=== PATIENT | male | born 1950 | race Caucasian/White ===

== ENCOUNTER 2019-05-03 13:52 | Emergency (ER) | payer MEDICARE, OTHER ==
[~2019-05-03] VITALS: Ht 172.7 cm; Wt 77.1 kg
[2019-05-03] MEDS ORDERED: CLOP75 PO ×2 (14:04→16:18)
[2019-05-03] MEDS ORDERED: Carbidopa-Levo1 EACH PO ×2 (14:05→16:18)
[2019-05-03] MEDS ORDERED: FAMO20 PO (14:05)
[2019-05-03] MEDS ORDERED: Lopressor 25 mg25 MG PO ×2 (14:05→16:18)
[2019-05-03] MEDS ORDERED: POTCHL20ER PO (14:05)
[2019-05-03] MEDS ORDERED: ASPI81CH PO (14:06)
[2019-05-03] MEDS ORDERED: ATOR80 PO ×2 (14:06→16:18)
[2019-05-03 14:47] LABS: BASOPHILS ABSOLUTE AUTO 0.07 K/mm3 (0.00-0.23); BASOPHILS PERCENT AUTO 1 % (0-2); EOSINOPHILS ABSOLUTE AUTO 0.27 K/mm3 (0.00-0.68); EOSINOPHILS PERCENT AUTO 4 % (0-6); Hematocrit 44.6 % (37.0-53.0); Hemoglobin 14.8 g/dL (13.5-17.5); IMMATURE GRAN ABSOLUTE AUTO 0.01 K/mm3 (0.00-0.10); IMMATURE GRAN PERCENT AUTO 0 % (0-1); LYMPHOCYTES PERCENT AUTO 13 % (21-46); MONOCYTES ABSOLUTE AUTO 0.49 K/mm3 (0.16-1.47); MONOCYTES PERCENT AUTO 8 % (4-13); Mean Corpuscular HGB 29.1 pg (26.0-34.0); Mean Corpuscular HGB Conc 33.2 g/dL (31.5-36.5); Mean Corpuscular Volume 88 fL (80-100); Mean Platelet Volume 8.9 fL (9.1-12.4); NEUTROPHILS ABSOLUTE AUTO 4.58 K/mm3 (1.96-9.15); NEUTROPHILS PERCENT AUTO 74 % (41-73); Platelet Count 208 K/mm3 (150-400); RDW Coefficient Variation 13.1 % (11.7-14.2); RDW Standard Deviation 42.1 fL (35.1-46.3); Red Blood Cell Count 5.08 M/mm3 (4.30-5.90); White Blood Cell Count 6.22 K/mm3 (4.00-11.30)
[2019-05-03 15:19] LABS: Alanine Aminotransfer (ALT/SGP 22 U/L (12-78); Albumin/Globulin Ratio 1.2 (0.8-1.8); Alk Phos 87 U/L (50-136); Anion Gap 7 mmol/L (6-16); Aspartate Aminotrans (AST/SGOT 17 U/L (12-37); Bilirubin, Total 0.7 mg/dL (0.1-1.0); Blood Urea Nitrogen 14 mg/dL (8-24); Bun/Creatinine Ratio 18.3 (12.0-20.0); CO2, Blood 24 mmol/L (21-32); Chloride, Blood 107 mmol/L (98-108); Creatinine, Blood 0.77 mg/dL (0.60-1.20); Globulin, Blood 3.2 g/dL (2.2-4.0); Glomerular Filtration Rate >60 (60-); Glucose, Blood 84 mg/dL (70-99); Potassium, Blood 3.9 mmol/L (3.5-5.5); Sodium, Blood 138 mmol/L (136-145); Total Protein, Blood 7.2 g/dL (6.4-8.2); Troponin I <0.015 ng/mL (0.000-0.040)
[2019-05-03] MEDS ORDERED: Pepcid20 MG PO (16:18)
[2019-05-03] MEDS ORDERED: K-Dur 20 meq T20 MEQ PO (16:18)
== END 2019-05-03 16:54 | disposition home or self-care (01) ==
LOC: ER 13:52
PROVIDERS: Internal Medicine
DX: R07.89 Other chest pain (principal); E78.5 Hyperlipidemia, unspecified; I10 Essential (primary) hypertension; G20 Parkinson's disease; I25.10 Atherosclerotic heart disease of native coronary artery without angina pectoris; Z79.82 Long term (current) use of aspirin; Z79.899 Other long term (current) drug therapy
CPT/HCPCS: 71046; 80053; 84484; 85025; 93005; 93010; 99285-25

== ENCOUNTER 2019-07-10 19:13 | Emergency (ER) | payer MEDICARE, OTHER ==
[~2019-07-10] VITALS: Ht 172.7 cm; Wt 74.8 kg
[~2019-07-10 19:13] MED LIST: ASPI81CH PO; ATOR80 PO; CLOP75 PO; Carbidopa-Levo1 EACH PO; FAMO20 PO; K-Dur 20 meq T20 MEQ PO; Lopressor 25 mg25 MG PO; POTCHL20ER PO; Pepcid20 MG PO
== END 2019-07-10 21:19 | disposition home or self-care (01) ==
LOC: ER 19:13
DX: M25.561 Pain in right knee (principal); Z79.899 Other long term (current) drug therapy; Z79.82 Long term (current) use of aspirin; G20 Parkinson's disease
CPT/HCPCS: 73562-RT; 99283-25

== ENCOUNTER 2021-07-31 19:43 | Emergency (ER) | payer OTHER ==
[~2021-07-31] VITALS: Ht 172.7 cm; Wt 78.5 kg
[2021-07-31 21:17] LABS: Anion Gap 10 mmol/L (6-16); Blood Urea Nitrogen 18 mg/dL (8-24); Bun/Creatinine Ratio 18.8 (12.0-20.0); CO2, Blood 21 mmol/L (21-32); Chloride, Blood 103 mmol/L (98-108); Creatinine, Blood 0.96 mg/dL (0.60-1.20); Glomerular Filtration Rate >60 (60-); Glucose, Blood 134 mg/dL (70-99); Potassium, Blood 4.1 mmol/L (3.5-5.5); Sodium, Blood 134 mmol/L (136-145)
[2021-07-31 21:21] LABS: BASOPHILS ABSOLUTE AUTO 0.05 K/mm3 (0.00-0.23); BASOPHILS PERCENT AUTO 0 % (0-2); EOSINOPHILS ABSOLUTE AUTO 0.01 K/mm3 (0.00-0.68); EOSINOPHILS PERCENT AUTO 0 % (0-6); Hematocrit 41.9 % (37.0-53.0); IMMATURE GRAN ABSOLUTE AUTO 0.12 K/mm3 (0.00-0.10); IMMATURE GRAN PERCENT AUTO 1 % (0-1); LYMPHOCYTES ABSOLUTE AUTO 0.39 K/mm3 (0.84-5.20); LYMPHOCYTES PERCENT AUTO 3 % (21-46); MONOCYTES ABSOLUTE AUTO 1.28 K/mm3 (0.16-1.47); MONOCYTES PERCENT AUTO 9 % (4-13); Mean Corpuscular HGB 26.8 pg (26.0-34.0); Mean Corpuscular HGB Conc 33.4 g/dL (31.5-36.5); Mean Corpuscular Volume 80 fL (80-100); Mean Platelet Volume 9.8 fL (9.1-12.4); NEUTROPHILS ABSOLUTE AUTO 12.99 K/mm3 (1.96-9.15); NEUTROPHILS PERCENT AUTO 88 % (41-73); Platelet Count 214 K/mm3 (150-400); RDW Coefficient Variation 14.5 % (11.7-14.2); RDW Standard Deviation 41.9 fL (35.1-46.3); Red Blood Cell Count 5.22 M/mm3 (4.30-5.90); White Blood Cell Count 14.84 K/mm3 (4.00-11.30)
[2021-07-31] MEDS ORDERED: ATOR80 PO (22:13)
[2021-07-31] MEDS ORDERED: Aspir 8181 MG PO (22:13)
[2021-07-31] MEDS ORDERED: CARBIDOPA-LEVO1 EA21 PO (22:14)
[2021-07-31] MEDS ORDERED: SIMBRINZA 1%-0.28 ML LEFTEYE (22:14)
[2021-07-31] MEDS ORDERED: METO25 PO (22:15)
[2021-07-31] MEDS ORDERED: FAMO20 PO (22:15)
[2021-07-31] MEDS ORDERED: CLOP75 PO (22:15)
[2021-07-31] MEDS ORDERED: QUET100 PO (22:16)
== END 2021-07-31 23:40 | disposition home or self-care (01) ==
LOC: ER 19:43
PROVIDERS: Student in an Organized Health Care Education/Training Program
DX: L03.031 Cellulitis of right toe (principal); D72.829 Elevated white blood cell count, unspecified; R53.1 Weakness; G20 Parkinson's disease; Z79.02 Long term (current) use of antithrombotics/antiplatelets; Z79.82 Long term (current) use of aspirin; Z95.1 Presence of aortocoronary bypass graft; Z95.5 Presence of coronary angioplasty implant and graft; W06.XXXA Fall from bed, initial encounter
CPT/HCPCS: 36415; 70450; 72125; 73562-RT; 73630; 80048; 83605; 85025; 85651; 86140; 93005; 93010; 96365; 96366; 96375; 99284-25; J0696; J3370; J7050

== ENCOUNTER 2021-08-06 08:08 | Emergency (ER) | payer OTHER ==
[~2021-08-06] VITALS: Ht 172.7 cm; Wt 78.5 kg
[~2021-08-06 08:08] MED LIST changes: +Aspir 8181 MG PO; +CARBIDOPA-LEVO1 EA21 PO; +CEFP200 PO; +METO25 PO; +QUET100 PO; +SIMBRINZA 1%-0.28 ML LEFTEYE
[2021-08-06 08:56] LABS: BASOPHILS ABSOLUTE AUTO 0.05 K/mm3 (0.00-0.23); BASOPHILS PERCENT AUTO 1 % (0-2); EOSINOPHILS ABSOLUTE AUTO 0.15 K/mm3 (0.00-0.68); EOSINOPHILS PERCENT AUTO 3 % (0-6); Hematocrit 40.6 % (37.0-53.0); Hemoglobin 13.3 g/dL (13.5-17.5); IMMATURE GRAN PERCENT AUTO 2 % (0-1); LYMPHOCYTES ABSOLUTE AUTO 0.88 K/mm3 (0.84-5.20); LYMPHOCYTES PERCENT AUTO 14 % (21-46); MONOCYTES ABSOLUTE AUTO 0.48 K/mm3 (0.16-1.47); MONOCYTES PERCENT AUTO 8 % (4-13); Mean Corpuscular HGB 26.3 pg (26.0-34.0); Mean Corpuscular HGB Conc 32.8 g/dL (31.5-36.5); Mean Corpuscular Volume 80 fL (80-100); Mean Platelet Volume 9.4 fL (9.1-12.4); NEUTROPHILS ABSOLUTE AUTO 4.44 K/mm3 (1.96-9.15); NEUTROPHILS PERCENT AUTO 73 % (41-73); Platelet Count 333 K/mm3 (150-400); RDW Coefficient Variation 14.5 % (11.7-14.2); RDW Standard Deviation 42.2 fL (35.1-46.3); Red Blood Cell Count 5.05 M/mm3 (4.30-5.90)
[2021-08-06 09:40] LABS: Alanine Aminotransfer (ALT/SGP 41 U/L (12-78); Albumin, Blood 2.6 g/dL (3.4-5.0); Albumin/Globulin Ratio 0.6 (0.8-1.8); Alk Phos 91 U/L (50-136); Anion Gap 7 mmol/L (6-16); Aspartate Aminotrans (AST/SGOT 32 U/L (12-37); Bilirubin, Total 0.4 mg/dL (0.1-1.0); Blood Urea Nitrogen 15 mg/dL (8-24); Bun/Creatinine Ratio 20.5 (12.0-20.0); CO2, Blood 26 mmol/L (21-32); Calcium, Blood 8.7 mg/dL (8.5-10.1); Chloride, Blood 106 mmol/L (98-108); Creatinine, Blood 0.73 mg/dL (0.60-1.20); Globulin, Blood 4.2 g/dL (2.2-4.0); Glomerular Filtration Rate >60 (60-); Glucose, Blood 102 mg/dL (70-99); Sodium, Blood 139 mmol/L (136-145); Total Protein, Blood 6.8 g/dL (6.4-8.2)
[2021-08-06 14:27] LABS: SARS-Cov-2 (COVID-19) PCR, MMC NEGATIVE (NEGATIVE)
== END 2021-08-06 17:05 ==
LOC: ER 08:08
PROVIDERS: Emergency Medicine
DX: L03.031 Cellulitis of right toe (principal); G20 Parkinson's disease; Z20.822 Contact with and (suspected) exposure to COVID-19; I25.10 Atherosclerotic heart disease of native coronary artery without angina pectoris; Z79.82 Long term (current) use of aspirin; Z79.899 Other long term (current) drug therapy; W18.30XA Fall on same level, unspecified, initial encounter
CPT/HCPCS: 36415; 73630; 80053; 85025; 97162; 97530; 99285-25; A9270; U0004

== ENCOUNTER → 2023-02-24 | Outpatient (CLI) | payer OTHER ==
[2023-02-25 11:32] LABS: Appearance, Urine Clear (Clear); Bilirubin, Urine Neg (Neg); Blood, Urine Neg (Neg); Color, Urine Yellow (P-Yellow); Glucose Qualitative, Urine Neg (Neg); Ketones, Urine Neg (Neg); Leukocyte Esterase, Urine Neg (Neg); Nitrite, Urine Neg (Neg); Protein, Urine Neg (Neg); Specific Gravity, Urine 1.015 (1.003-1.022); Urobilinogen, Urine NORM (Normal)
== END | disposition home or self-care (01) ==
LOC: LAB SHORT 14:45
PROVIDERS: Family Medicine
DX: N39.0 Urinary tract infection, site not specified (principal)
CPT/HCPCS: 81003; 87086

== ENCOUNTER 2023-07-03 15:08 | Emergency (ER) | payer OTHER ==
[~2023-07-03] VITALS: Ht 172.7 cm; Wt 68.0 kg
[~2023-07-03 15:08] MED LIST changes: +MIRALAX1714 PO; +OMEP20ER PO; +SENN187 PO
[2023-07-03] MEDS ORDERED: ATOR40TA PO (15:57)
[2023-07-03 15:58] LABS: BASOPHILS ABSOLUTE AUTO 0.06 K/mm3 (0.00-0.23); BASOPHILS PERCENT AUTO 1 % (0-2); EOSINOPHILS ABSOLUTE AUTO 0.13 K/mm3 (0.00-0.68); EOSINOPHILS PERCENT AUTO 3 % (0-6); Hematocrit 46.5 % (37.0-53.0); Hemoglobin 15.6 g/dL (13.5-17.5); IMMATURE GRAN ABSOLUTE AUTO 0.02 K/mm3 (0.00-0.10); IMMATURE GRAN PERCENT AUTO 0 % (0-1); LYMPHOCYTES ABSOLUTE AUTO 0.72 K/mm3 (0.84-5.20); LYMPHOCYTES PERCENT AUTO 14 % (21-46); MONOCYTES ABSOLUTE AUTO 0.35 K/mm3 (0.16-1.47); MONOCYTES PERCENT AUTO 7 % (4-13); Mean Corpuscular HGB 29.7 pg (26.0-34.0); Mean Corpuscular HGB Conc 33.5 g/dL (31.5-36.5); Mean Corpuscular Volume 89 fL (80-100); NEUTROPHILS ABSOLUTE AUTO 3.86 K/mm3 (1.96-9.15); NEUTROPHILS PERCENT AUTO 75 % (41-73); Platelet Count 186 K/mm3 (150-400); RDW Coefficient Variation 13.2 % (11.7-14.2); Red Blood Cell Count 5.25 M/mm3 (4.30-5.90); White Blood Cell Count 5.14 K/mm3 (4.00-11.30)
[2023-07-03 16:13] LABS: Magnesium, Blood 2.3 mg/dL (1.6-2.4)
[2023-07-03 16:16] LABS: Albumin, Blood 3.8 g/dL (3.4-5.0); Albumin/Globulin Ratio 1.2 (0.8-1.8); Bilirubin, Total 0.7 mg/dL (0.1-1.0); Bun/Creatinine Ratio 32.2 (12.0-20.0); Creatinine, Blood 0.68 mg/dL (0.60-1.20); Globulin, Blood 3.2 g/dL (2.2-4.0); Phosphorus, Blood 2.9 mg/dL (2.5-4.9); Potassium, Blood 4.3 mmol/L (3.5-5.5); Thyroid Stimulating Hormone 1.23 uIU/mL (0.360-4.800)
[2023-07-03 16:28] LABS: International Normalized Ratio 1.04; Prothrombin Time Results 10.9 Sec (9.7-11.5)
[2023-07-03 16:31] LABS: Source, Urine Clean Catch
[2023-07-03 16:36] LABS: Appearance, Urine Clear (Clear); Bilirubin, Urine Neg (Neg); Blood, Urine Neg (Neg); Color, Urine Yellow (P-Yellow); Glucose Qualitative, Urine Neg (Neg); Ketones, Urine Neg (Neg); Leukocyte Esterase, Urine Neg (Neg); Nitrite, Urine Neg (Neg); Protein, Urine Neg (Neg); Urobilinogen, Urine NORM (Normal)
[2023-07-03 17:30] VITALS: BP 129/99
== END 2023-07-03 17:31 ==
LOC: ER 15:08
PROVIDERS: Emergency Medicine
DX: E86.0 Dehydration (principal); Z79.899 Other long term (current) drug therapy; Z79.02 Long term (current) use of antithrombotics/antiplatelets; Z95.1 Presence of aortocoronary bypass graft; Z95.5 Presence of coronary angioplasty implant and graft
CPT/HCPCS: 70450; 80053; 81003; 83735; 84100; 84443; 84484; 85025; 85610; 85730; 93005; 93010; 96360; 99284-25; A9270; J7030

== ENCOUNTER → 2023-07-07 | Outpatient (CLI) | payer OTHER ==
[~2023-07-07] MED LIST changes: +ATOR40TA PO
[2023-07-08 10:01] LABS: Source, Urine Clean Catch
[2023-07-08 10:38] LABS: Appearance, Urine Clear (Clear); Bilirubin, Urine Neg (Neg); Blood, Urine Neg (Neg); Color, Urine Yellow (P-Yellow); Glucose Qualitative, Urine Neg (Neg); Ketones, Urine Neg (Neg); Leukocyte Esterase, Urine Neg (Neg); Nitrite, Urine Neg (Neg); Protein, Urine Neg (Neg); Specific Gravity, Urine 1.015 (1.003-1.022); Urobilinogen, Urine NORM (Normal)
== END ==
LOC: LAB SHORT 10:20 → LAB 10:20
PROVIDERS: Family Medicine
DX: N39.0 Urinary tract infection, site not specified (principal)
CPT/HCPCS: 81003; 87077; 87086; 87186

== ENCOUNTER 2023-11-03 17:16 | Observation (INO) | payer OTHER ==
[~2023-11-03] VITALS: Ht 175.3 cm; Wt 69.7 kg
[2023-11-03] MEDS ORDERED: Seroquel Xr50 MG PO (17:41)
[2023-11-03 17:49] LABS: BASOPHILS ABSOLUTE AUTO 0.05 K/mm3 (0.00-0.23); BASOPHILS PERCENT AUTO 1 % (0-2); EOSINOPHILS ABSOLUTE AUTO 0.13 K/mm3 (0.00-0.68); EOSINOPHILS PERCENT AUTO 1 % (0-6); Hematocrit 50.5 % (37.0-53.0); Hemoglobin 17.2 g/dL (13.5-17.5); IMMATURE GRAN ABSOLUTE AUTO 0.02 K/mm3 (0.00-0.10); IMMATURE GRAN PERCENT AUTO 0 % (0-1); LYMPHOCYTES ABSOLUTE AUTO 0.42 K/mm3 (0.84-5.20); LYMPHOCYTES PERCENT AUTO 4 % (21-46); MONOCYTES ABSOLUTE AUTO 0.64 K/mm3 (0.16-1.47); MONOCYTES PERCENT AUTO 7 % (4-13); Mean Corpuscular HGB 30.2 pg (26.0-34.0); Mean Corpuscular HGB Conc 34.1 g/dL (31.5-36.5); Mean Corpuscular Volume 89 fL (80-100); NEUTROPHILS ABSOLUTE AUTO 8.44 K/mm3 (1.96-9.15); NEUTROPHILS PERCENT AUTO 87 % (41-73); Platelet Count 191 K/mm3 (150-400); RDW Coefficient Variation 13.3 % (11.7-14.2)
[2023-11-03 18:12] LABS: Albumin, Blood 4.1 g/dL (3.4-5.0); Albumin/Globulin Ratio 1.1 (0.8-1.8); Bilirubin, Total 1.3 mg/dL (0.1-1.0); Bun/Creatinine Ratio 31.5 (12.0-20.0); Calcium, Blood 9.3 mg/dL (8.5-10.1); Creatinine, Blood 0.76 mg/dL (0.60-1.20); Globulin, Blood 3.6 g/dL (2.2-4.0); Magnesium, Blood 2.3 mg/dL (1.6-2.4); Potassium, Blood 4.7 mmol/L (3.5-5.5); Total Protein, Blood 7.7 g/dL (6.4-8.2)
[2023-11-03 18:23] LABS: Influenza A, PCR NEGATIVE (NEGATIVE); Influenza B, PCR NEGATIVE (NEGATIVE); Resp Syncytial Virus, PCR NEGATIVE (NEGATIVE); SARS-Cov-2 (COVID-19) PCR, MMC NEGATIVE (NEGATIVE)
[2023-11-03 22:28] VITALS: BP 122/109
[2023-11-03 22:30] VITALS: BP 123/89
[2023-11-03 22:44] LABS: Source, Urine Clean Catch
[2023-11-03 22:50] LABS: Bilirubin, Urine Neg (Neg); Blood, Urine Neg (Neg); Glucose Qualitative, Urine Neg (Neg); Ketones, Urine 1+ (Neg); Leukocyte Esterase, Urine Neg (Neg); Nitrite, Urine Neg (Neg); Protein, Urine Neg (Neg); Urobilinogen, Urine NORM (Normal)
[2023-11-03 22:58] LABS: Appearance, Urine Clear (Clear); Color, Urine Yellow (P-Yellow)
[2023-11-03 23:01] LABS: U Amphetamine Screen Not Detected; U Barbituate Screen Not Detected; U Benzodiazapine Screen DETECTED; U Buprenorphine Screen Not Detected; U Cannabinoids Screen Not Detected; U Cocaine Screen Not Detected; U Methadone Screen Not Detected; U Methamphetamine Screen Not Detected; U Opiates Screen Not Detected; U Oxycodone Screen Not Detected; U Phencyclidine Screen Not Detected
[2023-11-04 02:09] VITALS: BP 110/65
[2023-11-04 03:39] LABS: Hematocrit 45.2 % (37.0-53.0); Hemoglobin 15.1 g/dL (13.5-17.5); Mean Corpuscular HGB 29.8 pg (26.0-34.0); Mean Corpuscular HGB Conc 33.4 g/dL (31.5-36.5); Mean Corpuscular Volume 89 fL (80-100); RDW Coefficient Variation 13.5 % (11.7-14.2); RDW Standard Deviation 43.8 fL (35.1-46.3); Red Blood Cell Count 5.07 M/mm3 (4.30-5.90); White Blood Cell Count 6.65 K/mm3 (4.00-11.30)
[2023-11-04 03:44] LABS: Mean Platelet Volume 9.1 fL (9.1-12.4)
[2023-11-04 03:47] LABS: BAND PERCENT MAN 3 % (0-8); BASOPHILS PERCENT MAN 0 % (0-2); EOSINOPHILS ABSOLUTE MAN 0.13 K/mm3 (0.00-0.68); EOSINOPHILS PERCENT MAN 2 % (0-6); LYMPHOCYTES ABSOLUTE MAN 0.13 K/mm3 (0.84-5.20); LYMPHOCYTES PERCENT MAN 2 % (21-46); MONOCYTES ABSOLUTE MAN 0.06 K/mm3 (0.16-1.47); MONOCYTES PERCENT MAN 1 % (4-13); NEUTROPHILS ABSOLUTE MAN 6.31 K/mm3 (1.96-9.15); SEG NEUTROPHILS PERCENT MAN 92 % (41-73); TOTAL CELLS COUNTED 100
[2023-11-04 03:48] LABS: Platelet Count 170 K/mm3 (150-400)
[2023-11-04 04:04] LABS: Albumin, Blood 3.3 g/dL (3.4-5.0); Bun/Creatinine Ratio 34.6 (12.0-20.0); Calcium, Blood 8.4 mg/dL (8.5-10.1); Creatinine, Blood 0.67 mg/dL (0.60-1.20); Globulin, Blood 3.2 g/dL (2.2-4.0); Potassium, Blood 4.2 mmol/L (3.5-5.5); Total Protein, Blood 6.5 g/dL (6.4-8.2)
--- NOTE | 2023-11-04 07:11 | NUR ---
SHIFT SUMMARY: PATIENT ARRIVES TO ROOM AT 2215 FROM ER FOR DX'S OF SYNCOPE. PATIENT A/OX3, VERY ANXIOUS, PLEASANT AND COOPERATIVE c CARE. VISIBLE TREMORS TO BUE'S, HX OF PARKINSON. PATIENT DENIES CP/PRESSURE, N/V, AND DIZZINESS. PATIENT RECEIVED OT DOSE OF ATIVAN AND OT DOSE OF KLONOPIN FOR ANXIETY, c MODERATE EFFECT. PATIENT HAD HICCUPS, NOTIFIED DR. BARNARD AND PLACED ORDER FOR OT DOSE LEVSIN, MEDICATED PER ORDER. PATIENT DID NOT HAD ANY SLEEP LAST NIGHT UNTIL AROUND 0615. PATIENT ON TELE, NSR HR IN THE 80'S BPM. PATIENT O2 WAS IN THE MID 80'S WHEN ARRIVED TO ROOM, PLACED ON 2L OF O2 VIA NC AND HAS BEEN SATING IN THE LOW 90'S THIS SHIFT. PATIENT IS CONTINENCE OF BLADDER, USES URINAL c ASSISTANCE. PIV TO RAC INFUSING NS AT 75 MLS/HR. BED ALARM ON FOR SAFETY. CALL LIGHT IN REACH.
[2023-11-04 09:08] VITALS: BP 120/75
--- NOTE | 2023-11-04 10:55 | NUR ---
NUCLEAR MED CALL RESTING 1330 - INJECTION 1430 - SCAN NO CAFFEINE AFTER 1900, NPO AFTER MIDNIGHT (WATER OK). STRESS TEST 11/05/23 - [id number] THEN SCAN AFTER.
[2023-11-04 14:04] VITALS: BP 111/72
--- NOTE | 2023-11-04 17:50 | NUR ---
SHIFT SUMMARY A&OX4, COOPERATIVE WITH CARE. [place] AND SOFT SPOKEN. LETHARGIC AT THE BEGINNING OF THE SHIFT R/T FINALLY FALLING ASLEEP AT 0600 THIS MORNING. PATIENT IS ABLE TO MAKE NEEDS KNOWN. NOTED TO HAVE INCREASED PARKINSON'S TEMORS AT TIMES. PATIENT EXPERIENCED HICCUPS FOR A COUPLE OF HOURS AND WAS GIVEN THORAZINE 10MG PO WHICH HELPED. RESTING PORTION OF THE STRESS TEST COMPLETED TODAY. SECOND PART OF STRESS TEST PLANNED FOR TOMORROW. PATIENT IS CURRENTLY SITTING UP IN BED EATING DINNER. CALL LIGHT IS WITHIN REACH.
[2023-11-04 20:29] VITALS: BP 107/60
--- NOTE | 2023-11-05 04:23 | NUR ---
SHIFT SUMMARY PATIET HAD NO ACUTE CHANGES. AXOX 3, PARKINSON TREMORS, AND BED REST. ON 2L O2 NC. TELE MONITOR NSR 68. CONDOM CATH IN PLACE. VSS/AFEBRILE. DENIES CHEST PAIN, SOB, AND N/V. SECOND PART OF STRESS TEST TODAY. SLEPT ON/OFF T/O SHIFT. CALL LIGHT IN REACH. BED IN LOWEST POSITION. WILL CONTINUE TO MONITOR UNTIL DAY SHIFT NURSE ASSUMES CARE.
[2023-11-05 04:35] VITALS: BP 104/76
[2023-11-05 07:30] VITALS: BP 102/70
[2023-11-05 16:18] VITALS: BP 127/81
--- NOTE | 2023-11-05 18:39 | NUR ---
SHIFT SUMMARY- PT IS A/O, PLESANT AND COOPERATIVE. HE IS EATING AND DRINKING WELL. RECIEVED A BED BATH THIS SHIFT. HE WENT FOR THE SECOND PART OF A STRESS TEST THIS SHIFT. POSSIBLE DX TOMORROW.
[2023-11-05 20:17] VITALS: BP 113/81
[2023-11-06 02:31] VITALS: BP 97/65
--- NOTE | 2023-11-06 06:46 | NUR ---
END OF SHIFT SUMMARY PT A&O x3-4, VSS, AFEBRILE. PT ON RA, RESP RATE EVEN AND UNLABORED. PT ON TELEMETRY, SINUS RHYTHM AT 66BPM. NO C/O OF CHEST PAIN, NO SOB. PT REQUESTED PAIN MEDICATION FOR GENERALIZED PAIN. PRN APAP GIVEN WITH GOOD RESULTS. NO EVENTS OVERNIGHT. PT SLEPT WELL. PT ABLE TO MAKE NEEDS KNOWN, CALL LIGHT WITHIN REACH, WCTM.
[2023-11-06 07:50] VITALS: BP 138/85
[2023-11-06 15:15] VITALS: BP 139/85
--- NOTE | 2023-11-06 19:07 | NUR ---
SHIFT SUMMARY: PT A&O X3-4. PLEASANT AND COOPERATIVE WITH CARE. NO ACUTE CHANGES WITH PT THIS SHIFT. PLAN TO D/C YESTERDAY BUT COULD NOT D/T RIDE ISSUES. PLAN TO D/C TODAY BUT UNABLE D/T PT STAYING 72 HOURS AND RE-EVAL NEEDING TO BE COMPLETED. TELE REMOVED PER DR. ROBINS REQUEST. NEW CONDOM CATH APPLIED DRAINING YELLOW URINE TO GRAVITY. CALL LIGHT IN REACH. BED IN LOWEST POSITION.
[2023-11-06 20:06] VITALS: BP 126/68
--- NOTE | 2023-11-07 03:44 | NUR ---
PT A&O x4, VSS, AFEBRILE, PT ON RA. PT CALM AND COOPERATIVE WITH CARE PROVIDED. PT SLEPT FOR THE MAJORITY OF THE NIGHT. PT UP TO BSC TO HAVE A BM. PT INCREASINGLY WEAK, TOOK 1-2P ASSIST FOR SAFETY. CONDOM CATH IN PLACE OVERNIGHT. NO C/O PAIN OR DISCOMFORT. PT ABLE TO MAKE NEEDS KNOWN. PT CALLS APPROPRIATELY FOR ASSISTANCE. FLUIDS ENCOURAGED. PRN THORAZINE GIVEN PER PT'S REQUEST TO HELP WITH ANXIETY. NO DIFFICULTIES WITH BREATHING NOTED. POSSIBLE DISCHARGE TODAY BACK TO CARE FACILITY. CALL LIGHT WITHIN REACH, WCTM.
[2023-11-07 05:36] VITALS: BP 117/74
[2023-11-07 07:50] VITALS: BP 126/77
[2023-11-07 16:18] VITALS: BP 132/94
--- NOTE | 2023-11-07 16:41 | NUR ---
DISCHARGE NOTE PT DISCHARGED HOME AT APPROX 16:40. PT PROVIDED W/ VERBAL AND WRITTEN INSRUCTIONS AND REPORTED UNDERSTANDING. PT A&OX4, VSS, AMB W/ ASSIST, TOLERATING PO, VOIDING, AND DENIED PAIN. BELONGINGS WERE RETURNED AND PT ESCOURTED OUT VIA W/C BY [facility]
== END 2023-11-07 16:45 ==
LOC: ER 17:16 → MEDS 17:17 → ERHOLD 17:17 → MEDS 22:15 → ENPENDDIS 11-06 16:38 → MEDS 11-07 16:45
PROVIDERS: Student in an Organized Health Care Education/Training Program; ADMIT Internal Medicine
DX: R55 Syncope and collapse (principal); G93.40 Encephalopathy, unspecified; G20.A1 Parkinson's disease without dyskinesia, without mention of fluctuations
CPT/HCPCS: 0241U; 36415; 71045; 78452; 80053; 81003; 83735; 83880; 84484; 85025; 85379; 93005; 93010; 93017; 93306; 96361; 96372; 96372-59; 96374; 96375; 97162; 97530; 99285-25; A9270; A9500; G0378; J0706; J1650; J1980; J2060; J2785; J7030

== ENCOUNTER 2023-12-12 20:33 | Emergency (ER) | payer OTHER ==
[~2023-12-12] VITALS: Ht 172.7 cm; Wt 68.0 kg
[~2023-12-12 20:33] MED LIST changes: +Seroquel Xr50 MG PO
[2023-12-12 20:37] VITALS: BP 119/79
[2023-12-12 21:00] LABS: BASOPHILS ABSOLUTE AUTO 0.09 K/mm3 (0.00-0.23); BASOPHILS PERCENT AUTO 1 % (0-2); EOSINOPHILS ABSOLUTE AUTO 0.28 K/mm3 (0.00-0.68); EOSINOPHILS PERCENT AUTO 4 % (0-6); Hematocrit 45.3 % (37.0-53.0); Hemoglobin 15.4 g/dL (13.5-17.5); IMMATURE GRAN ABSOLUTE AUTO 0.05 K/mm3 (0.00-0.10); IMMATURE GRAN PERCENT AUTO 1 % (0-1); LYMPHOCYTES PERCENT AUTO 19 % (21-46); MONOCYTES ABSOLUTE AUTO 0.57 K/mm3 (0.16-1.47); MONOCYTES PERCENT AUTO 9 % (4-13); Mean Corpuscular Volume 88 fL (80-100); Mean Platelet Volume 9.1 fL (9.1-12.4); NEUTROPHILS ABSOLUTE AUTO 4.13 K/mm3 (1.96-9.15); NEUTROPHILS PERCENT AUTO 65 % (41-73); Platelet Count 211 K/mm3 (150-400); RDW Coefficient Variation 13.2 % (11.7-14.2); RDW Standard Deviation 43.4 fL (35.1-46.3); Red Blood Cell Count 5.13 M/mm3 (4.30-5.90); White Blood Cell Count 6.32 K/mm3 (4.00-11.30)
[2023-12-12 21:20] LABS: Albumin, Blood 3.5 g/dL (3.4-5.0); Bilirubin, Total 0.4 mg/dL (0.1-1.0); Bun/Creatinine Ratio 26.8 (12.0-20.0); Calcium, Blood 8.8 mg/dL (8.5-10.1); Creatinine, Blood 0.67 mg/dL (0.60-1.20); Globulin, Blood 3.6 g/dL (2.2-4.0); Potassium, Blood 4.8 mmol/L (3.5-5.5); Total Protein, Blood 7.1 g/dL (6.4-8.2)
[2023-12-12] MEDS ORDERED: ATOR40TA PO (21:34)
[2023-12-12] MEDS ORDERED: OMEP20ER PO (21:35)
== END 2023-12-12 22:10 | disposition home or self-care (01) ==
LOC: ER 20:33
PROVIDERS: Physician Assistant
DX: R53.1 Weakness (principal); Z79.899 Other long term (current) drug therapy
CPT/HCPCS: 80053; 85025; 93005; 93010; 99284-25

== ENCOUNTER → 2024-05-13 | Outpatient (CLI) | payer OTHER ==
[~2024-05-13] MED LIST changes: +Bactrim Ds Tab1 EACH PO; +DULCOLAX400 MG/5 M; +MIRALAX17 GM PO
[2024-05-13 16:23] LABS: Source, Urine Voided
[2024-05-13 17:26] LABS: Appearance, Urine Clear (Clear); Bilirubin, Urine Neg (Neg); Blood, Urine Neg (Neg); Color, Urine Yellow (P-Yellow); Glucose Qualitative, Urine Neg (Neg); Ketones, Urine Neg (Neg); Leukocyte Esterase, Urine Neg (Neg); Nitrite, Urine Neg (Neg); Protein, Urine Neg (Neg); Specific Gravity, Urine 1.015 (1.003-1.022); Urobilinogen, Urine NORM (Normal)
== END | disposition home or self-care (01) ==
LOC: LAB 16:16 → LAB SHORT 16:16
PROVIDERS: Family Medicine
DX: N39.0 Urinary tract infection, site not specified (principal)
CPT/HCPCS: 81003; 87086

== ENCOUNTER → 2024-06-14 | Outpatient (CLI) | payer OTHER ==
[2024-06-14 17:02] LABS: Source, Urine Voided
[2024-06-14 18:52] LABS: Appearance, Urine Clear (Clear); Bilirubin, Urine Neg (Neg); Blood, Urine Neg (Neg); Glucose Qualitative, Urine Neg (Neg); Ketones, Urine Neg (Neg); Leukocyte Esterase, Urine Neg (Neg); Nitrite, Urine Neg (Neg); Protein, Urine Neg (Neg); Urobilinogen, Urine NORM (Normal)
[2024-06-14 19:58] LABS: Color, Urine Pale Yellow (P-Yellow)
== END | disposition home or self-care (01) ==
LOC: LAB SHORT 16:55
PROVIDERS: Family Medicine
DX: N39.0 Urinary tract infection, site not specified (principal)
CPT/HCPCS: 81003; 87086

== ENCOUNTER 2024-07-26 12:44 | Emergency (ER) | payer OTHER ==
[~2024-07-26] VITALS: Ht 172.7 cm; Wt 72.6 kg
[2024-07-26 14:08] LABS: Source, Urine Clean Catch
[2024-07-26 14:12] LABS: Bilirubin, Urine Neg (Neg); Blood, Urine Neg (Neg); Glucose Qualitative, Urine Neg (Neg); Ketones, Urine Neg (Neg); Leukocyte Esterase, Urine Neg (Neg); Nitrite, Urine Neg (Neg); Protein, Urine Neg (Neg); Urobilinogen, Urine NORM (Normal)
[2024-07-26 14:12] LABS: BASOPHILS ABSOLUTE AUTO 0.06 K/mm3 (0.00-0.23); BASOPHILS PERCENT AUTO 1 % (0-2); EOSINOPHILS PERCENT AUTO 5 % (0-6); Hematocrit 42.6 % (37.0-53.0); Hemoglobin 14.7 g/dL (13.5-17.5); IMMATURE GRAN ABSOLUTE AUTO 0.03 K/mm3 (0.00-0.10); IMMATURE GRAN PERCENT AUTO 1 % (0-1); LYMPHOCYTES PERCENT AUTO 12 % (21-46); MONOCYTES ABSOLUTE AUTO 0.42 K/mm3 (0.16-1.47); MONOCYTES PERCENT AUTO 7 % (4-13); Mean Corpuscular HGB 29.2 pg (26.0-34.0); Mean Corpuscular HGB Conc 34.5 g/dL (31.5-36.5); Mean Corpuscular Volume 85 fL (80-100); NEUTROPHILS ABSOLUTE AUTO 4.18 K/mm3 (1.96-9.15); NEUTROPHILS PERCENT AUTO 73 % (41-73); Platelet Count 180 K/mm3 (150-400); RDW Coefficient Variation 13.4 % (11.7-14.2); RDW Standard Deviation 41.1 fL (35.1-46.3); Red Blood Cell Count 5.03 M/mm3 (4.30-5.90); White Blood Cell Count 5.69 K/mm3 (4.00-11.30)
[2024-07-26 14:14] LABS: Appearance, Urine Clear (Clear); Color, Urine Yellow (P-Yellow)
[2024-07-26 14:23] LABS: Albumin, Blood 3.4 g/dL (3.4-5.0); Bilirubin, Total 0.8 mg/dL (0.1-1.0); Bun/Creatinine Ratio 23.7 (12.0-20.0); Calcium, Blood 9.6 mg/dL (8.5-10.1); Creatinine, Blood 0.76 mg/dL (0.60-1.20); Globulin, Blood 3.4 g/dL (2.2-4.0); Potassium, Blood 4.8 mmol/L (3.5-5.5); Total Protein, Blood 6.8 g/dL (6.4-8.2)
[2024-07-26] MEDS ORDERED: TAMS.4ER PO (15:14)
[2024-07-26 16:00] VITALS: BP 156/85
[2024-07-26] MEDS ORDERED: Acetaminophen 500 MG Tab PO ONE (16:05)
== END 2024-07-26 16:08 | disposition home or self-care (01) ==
LOC: ER 12:44
PROVIDERS: Emergency Medicine
DX: R35.0 Frequency of micturition (principal); G20.A1 Parkinson's disease without dyskinesia, without mention of fluctuations; I25.10 Atherosclerotic heart disease of native coronary artery without angina pectoris; I48.0 Paroxysmal atrial fibrillation; Z91.81 History of falling; Z95.1 Presence of aortocoronary bypass graft; Z95.5 Presence of coronary angioplasty implant and graft; Z79.01 Long term (current) use of anticoagulants; Z79.899 Other long term (current) drug therapy
CPT/HCPCS: 51798; 80053; 81003; 85025

== ENCOUNTER 2024-08-23 08:22 | Emergency (ER) | payer OTHER ==
[~2024-08-23] VITALS: Ht 172.7 cm; Wt 74.4 kg
[~2024-08-23 08:22] MED LIST changes: +TAMS.4ER PO
[2024-08-23 08:29] VITALS: BP 107/74
[2024-08-23] MEDS ORDERED: Gabapentin 300 MG Cap PO ONE (09:05)
[2024-08-23] MEDS ORDERED: GABA100 PO (09:11)
[2024-08-23] MEDS ORDERED: GABA300 PO (09:11)
== END 2024-08-23 09:53 | disposition home or self-care (01) ==
LOC: ER 08:22
DX: G62.9 Polyneuropathy, unspecified (principal); G20.A1 Parkinson's disease without dyskinesia, without mention of fluctuations; I25.119 Atherosclerotic heart disease of native coronary artery with unspecified angina pectoris; I48.0 Paroxysmal atrial fibrillation; K21.9 Gastro-esophageal reflux disease without esophagitis; Z79.899 Other long term (current) drug therapy; Z95.1 Presence of aortocoronary bypass graft
CPT/HCPCS: 99283; A9270

== ENCOUNTER 2024-10-19 10:03 | Emergency (ER) | payer OTHER ==
[~2024-10-19] VITALS: Ht 172.7 cm; Wt 77.1 kg
[~2024-10-19 10:03] MED LIST changes: +GABA100 PO; +GABA300 PO
[2024-10-19 11:17] LABS: BASOPHILS ABSOLUTE AUTO 0.06 K/mm3 (0.00-0.23); BASOPHILS PERCENT AUTO 1 % (0-2); EOSINOPHILS ABSOLUTE AUTO 0.18 K/mm3 (0.00-0.68); EOSINOPHILS PERCENT AUTO 3 % (0-6); Hematocrit 45.9 % (37.0-53.0); Hemoglobin 15.7 g/dL (13.5-17.5); IMMATURE GRAN ABSOLUTE AUTO 0.02 K/mm3 (0.00-0.10); IMMATURE GRAN PERCENT AUTO 0 % (0-1); LYMPHOCYTES ABSOLUTE AUTO 0.97 K/mm3 (0.84-5.20); LYMPHOCYTES PERCENT AUTO 15 % (21-46); MONOCYTES ABSOLUTE AUTO 0.57 K/mm3 (0.16-1.47); MONOCYTES PERCENT AUTO 9 % (4-13); Mean Corpuscular HGB 30.3 pg (26.0-34.0); Mean Corpuscular HGB Conc 34.2 g/dL (31.5-36.5); Mean Corpuscular Volume 88 fL (80-100); Mean Platelet Volume 8.9 fL (9.1-12.4); NEUTROPHILS ABSOLUTE AUTO 4.51 K/mm3 (1.96-9.15); NEUTROPHILS PERCENT AUTO 71 % (41-73); Platelet Count 185 K/mm3 (150-400); RDW Coefficient Variation 13.4 % (11.7-14.2); RDW Standard Deviation 43.7 fL (35.1-46.3); Red Blood Cell Count 5.19 M/mm3 (4.30-5.90); White Blood Cell Count 6.31 K/mm3 (4.00-11.30)
[2024-10-19 11:35] LABS: Albumin, Blood 3.4 g/dL (3.4-5.0); Bilirubin, Total 0.6 mg/dL (0.1-1.0); Bun/Creatinine Ratio 24.7 (12.0-20.0); Calcium, Blood 9.1 mg/dL (8.5-10.1); Creatinine, Blood 0.73 mg/dL (0.60-1.20); Globulin, Blood 3.4 g/dL (2.2-4.0); Potassium, Blood 4.7 mmol/L (3.5-5.5); Total Protein, Blood 6.8 g/dL (6.4-8.2)
[2024-10-19 14:45] VITALS: BP 129/98
== END 2024-10-19 15:00 | disposition home or self-care (01) ==
LOC: ER 10:03
PROVIDERS: Physician Assistant
DX: K64.8 Other hemorrhoids (principal); K21.9 Gastro-esophageal reflux disease without esophagitis; Z79.899 Other long term (current) drug therapy
CPT/HCPCS: 80053; 85025; 99283

== ENCOUNTER 2025-02-03 05:40 | Emergency (ER) | payer OTHER ==
[~2025-02-03] VITALS: Ht 172.7 cm; Wt 77.1 kg
[2025-02-03 05:47] VITALS: BP 108/90
[2025-02-03] MEDS ORDERED: Amoxicillin/Clavulanate K 875 MG Tab PO ONE (06:55)
[2025-02-03] MEDS ORDERED: AMOCLA875 PO (07:59)
== END 2025-02-03 09:08 | disposition home or self-care (01) ==
LOC: ER 05:40
DX: K05.30 Chronic periodontitis, unspecified (principal); G20.A1 Parkinson's disease without dyskinesia, without mention of fluctuations; F32.A Depression, unspecified; I25.10 Atherosclerotic heart disease of native coronary artery without angina pectoris; I48.0 Paroxysmal atrial fibrillation; K21.9 Gastro-esophageal reflux disease without esophagitis; Z95.5 Presence of coronary angioplasty implant and graft; Z95.1 Presence of aortocoronary bypass graft; Z91.81 History of falling; Z79.899 Other long term (current) drug therapy; Z79.02 Long term (current) use of antithrombotics/antiplatelets
CPT/HCPCS: 64400; 99283-25; A9270

== ENCOUNTER → 2025-08-05 | Outpatient (CLI) | payer OTHER ==
[~2025-08-05] MED LIST changes: +AMOCLA875 PO
[2025-08-08 09:17] LABS: Bilirubin, Urine Neg (Neg); Glucose Qualitative, Urine Neg (Neg); Ketones, Urine Neg (Neg); Leukocyte Esterase, Urine Neg (Neg); Protein, Urine Neg (Neg); Specific Gravity, Urine 1.020 (1.003-1.022); Urobilinogen, Urine NORM (Normal)
[2025-08-08 09:30] LABS: Color, Urine Yellow (P-Yellow)
== END ==
LOC: LAB 18:18 → LAB SHORT 18:18
PROVIDERS: Nurse Practitioner
DX: N39.0 Urinary tract infection, site not specified (principal)
CPT/HCPCS: 81003

== ENCOUNTER → 2025-09-04 | Outpatient (CLI) | payer OTHER ==
[2025-09-05 17:18] LABS: Bilirubin, Urine Neg (Neg); Glucose Qualitative, Urine Neg (Neg); Ketones, Urine Neg (Neg); Leukocyte Esterase, Urine Neg (Neg); Protein, Urine Neg (Neg); Specific Gravity, Urine 1.015 (1.003-1.022); Urobilinogen, Urine NORM (Normal)
[2025-09-05 17:26] LABS: Color, Urine Pale Yellow (P-Yellow)
== END ==
LOC: LAB 21:00 → LAB SHORT 21:00
PROVIDERS: Nurse Practitioner
DX: N39.0 Urinary tract infection, site not specified (principal)
CPT/HCPCS: 81003; 87077; 87086; 87186

== ENCOUNTER 2025-09-07 10:56 | Emergency (ER) | payer OTHER ==
[~2025-09-07] VITALS: Ht 172.7 cm; Wt 78.9 kg
[2025-09-07 11:41] LABS: Calcium, Ionized (POC) 1.27 mmol/L (1.10-1.46); Chloride (POC) 104 mmol/L (98-108); Creatinine (POC) 0.8 mg/dL (0.8-1.3); Glucose (ISTAT POC) 78 mg/dL (70-99); Hematocrit (POC) 46.0 % (41.0-53.0); Hemoglobin (POC) 15.6 g/dL (13.5-17.5); Potassium (POC) 4.5 mmol/L (3.5-5.5); Sodium (POC) 139 mmol/L (135-148); Total CO2 (POC) 25 mmol/L (21-32)
[2025-09-07] MEDS ORDERED: NS 500 ML IV SCH (11:45)
[2025-09-07 12:17] LABS: Source, Urine Clean Catch
[2025-09-07 12:22] LABS: Bilirubin, Urine Neg (Neg); Color, Urine Yellow (P-Yellow); Glucose Qualitative, Urine Neg (Neg); Ketones, Urine Neg (Neg); Leukocyte Esterase, Urine Neg (Neg); Protein, Urine 1+ (Neg); Specific Gravity, Urine 1.015 (1.003-1.022); Urobilinogen, Urine NORM (Normal)
[2025-09-07 12:27] LABS: Red Blood Cells, Urine 50-100 /hpf (0-2); White Blood Cells, Urine 0-2 /hpf (0-5)
[2025-09-07 14:29] VITALS: BP 129/72
== END 2025-09-07 14:31 | disposition home or self-care (01) ==
LOC: ER 10:56
PROVIDERS: Student in an Organized Health Care Education/Training Program
DX: S39.94XA Unspecified injury of external genitals, initial encounter (principal); X58.XXXA Exposure to other specified factors, initial encounter; N48.89 Other specified disorders of penis; G20.A1 Parkinson's disease without dyskinesia, without mention of fluctuations; K21.9 Gastro-esophageal reflux disease without esophagitis; I48.0 Paroxysmal atrial fibrillation; I25.10 Atherosclerotic heart disease of native coronary artery without angina pectoris; Z79.02 Long term (current) use of antithrombotics/antiplatelets; Z79.899 Other long term (current) drug therapy; Z95.1 Presence of aortocoronary bypass graft
CPT/HCPCS: 80047; 81001; 85014; 99283; J7030